=== PATIENT | female | born 1940 ===

== ENCOUNTER 2024-08-25 08:30 | Day surgery (SDC) | payer OTHER ==
[2024-08-23 10:23] VITALS: BMI 30.2
[2024-08-25] MEDS ORDERED: ACETAMINOPHEN 500 MG TABLET (FP) PO PRN (08:56)
[2024-08-25 08:57] VITALS: RESP 20
[2024-08-25] MEDS: LIDOCAINE HCL 1% PRESERVATIVE FREE - 30ML VIAL IJ ONE ×2 (10:25)
[2024-08-25] MEDS: IOHEXOL 180 MG/1 ML ML IT ONE ×2 (10:29)
[2024-08-25] MEDS: DEXAMETHASONE SOD PHOSPHATE 10 MG/1 ML VIAL IM ONE ×2 (10:29)
[2024-08-25 10:50] VITALS: BP 163/70; PULSE 99; TEMP 98.4
== END 2024-08-25 11:15 | disposition home or self-care (01) ==
LOC: JASU-SURG 08:30
PROVIDERS: ATTEND Pain Medicine Pain Medicine
PROC: 3E0R3BZ Introduction of Anesthetic Agent into Spinal Canal, Percutaneous Approach (ICD-10-PCS; 2024-08-25)
PROC: 3E0R33Z Introduction of Anti-inflammatory into Spinal Canal, Percutaneous Approach (ICD-10-PCS; principal; 2024-08-25 10:00)
DX: M54.16 Radiculopathy, lumbar region (principal)
CPT/HCPCS: 76000-TC-FY; J1100